=== PATIENT | male | born 1965 | race Caucasian/White ===

== ENCOUNTER 2017-06-19 17:56 | Inpatient (IN) ==
[2017-06-19] MEDS ORDERED: LACTATED RINGERS 1,000 ML IV STA (18:08)
[2017-06-19 18:25] LABS: Basophils % 0.2 % (0.0-0.8); Eosinophils % 0.1 % (0.00-10.9); Hematocrit 41.6 VOL% (42.0-52.0); Hemoglobin 14.5 GM/DL (14.0-18.0); Immature Granulocytes % 0.9 %; Immature Granulocytes Absolute 0.17 #; Lymphocytes # 1.5 10*3/uL (1.4-4.0); Lymphocytes % 7.6 % (21.2-54.2); Mean Corpuscular HGB Conc 34.9 GM/DL (32-36); Mean Corpuscular Hemoglobin 31 PG (27-34); Mean Corpuscular Volume 89.1 FL (87-102); Mean Platelet Volume 9.7 FL (9.6-12.0); Monocytes # 1.2 10*3/uL (0.11-0.8); Monocytes % 6.2 % (1.7-12.7); Neutrophils # 16.4 10*3/uL (1.4-7.4); Platelet Count 256 T/CUMM (130-400); Red Blood Count 4.67 MC/CUMM (3.8-5.5); Red Cell Distribution Width 12.2 % (9.3-17.3); White Blood Count 19.2 T/CUMM (4-12)
[2017-06-19 18:35] LABS: PT Patient Result 10.2 SECS; Partial Thromboplastin Time 25.1 SECS (0-40)
[2017-06-19] MEDS ORDERED: HYDROmorphone 2 MG/1 ML VIAL IV STA (18:42)
[2017-06-19] MEDS ORDERED: ONDANSETRON 4 MG/2 ML VIAL IV STA (18:42)
[2017-06-19 18:50] LABS: Lactic Acid 1.4 MMOL/L (0.4-2.0)
[2017-06-19 18:52] LABS: Alanine Aminotransferase 50 U/L (16-61); Albumin 4.3 G/DL (3.4-5.0); Alkaline Phosphatase 60 U/L (45-117); Amylase 60 U/L (25-115); Aspartate Amino Transferase 44 U/L (0-37); Blood Urea Nitrogen 26 MG/DL (7-18); Calcium 9.1 MG/DL (8.5-10.1); Glucose 143 MG/DL (74-106); Osmolality,Calculated 279.8 MOS/KG (273-304); Sodium 137 MMOL/L (136-145); Troponin I Only < 0.015 NG/ML (0.00-0.045)
[2017-06-19] MEDS ORDERED: HYDROmorphone 2 MG/1 ML VIAL ONE (18:56)
[2017-06-19] MEDS ORDERED: ONDANSETRON 4 MG/2 ML VIAL ONE (18:56)
[2017-06-19] MEDS ORDERED: KETOROLAC 30 MG/1 ML VIAL ONE (19:08)
[2017-06-19] MEDS ORDERED: KETOROLAC 30 MG/1 ML VIAL IV STA (19:10)
[2017-06-19] MEDS ORDERED: SODIUM CHLORIDE 0.9% 1,000 ML IV PRN (21:36)
[2017-06-19] MEDS ORDERED: NALOXONE 0.4 MG/ML VIAL IV PRN (21:36)
[2017-06-19] MEDS: ALUMINUM/MAGNES/SIMETH MAX STR 30 ML UDCUP PO PRN (22:24)
[2017-06-19] MEDS: GABAPENTIN 100 MG CAPSULE PO SCH (22:25)
[2017-06-19] MEDS: LACTATED RINGERS 1,000 ML IV SCH (22:25)
[2017-06-19] MEDS: KETOROLAC 30 MG/1 ML VIAL IV SCH (22:28)
[2017-06-19] MEDS: HYDROmorphone PCA 30 MG/30 ML SYRINGE IV SCH (23:21)
[2017-06-20] MEDS: KETOROLAC 30 MG/1 ML VIAL IV SCH ×4 (05:37→23:22)
[2017-06-20] MEDS: LACTATED RINGERS 1,000 ML IV SCH (06:32)
[2017-06-20 06:51] LABS: Basophils % 0.2 % (0.0-0.8); Eosinophils % 0.2 % (0.00-10.9); Hematocrit 34.5 VOL% (42.0-52.0); Hemoglobin 12.2 GM/DL (14.0-18.0); Immature Granulocytes % 0.6 %; Immature Granulocytes Absolute 0.06 #; Lymphocytes # 1.7 10*3/uL (1.4-4.0); Mean Corpuscular HGB Conc 35.4 GM/DL (32-36); Mean Corpuscular Hemoglobin 31 PG (27-34); Mean Corpuscular Volume 88.5 FL (87-102); Mean Platelet Volume 10.2 FL (9.6-12.0); Monocytes # 0.9 10*3/uL (0.11-0.8); Monocytes % 8.5 % (1.7-12.7); Neutrophils # 7.5 10*3/uL (1.4-7.4); Neutrophils % 73.5 % (38.7-73.9); Platelet Count 193 T/CUMM (130-400); Red Cell Distribution Width 12.4 % (9.3-17.3); White Blood Count 10.2 T/CUMM (4-12)
[2017-06-20 07:26] LABS: Albumin 3.4 G/DL (3.4-5.0); Bilirubin,Total 1.3 MG/DL (0.2-1.0); Calcium 8.6 MG/DL (8.5-10.1); Osmolality,Calculated 281.4 MOS/KG (273-304); Potassium 3.9 MMOL/L (3.5-5.1); Total Protein 6.4 G/DL (6.4-8.3)
[2017-06-20] MEDS: ENOXAPARIN 40 MG/0.4 ML SYRINGE SUBCUT SCH (09:01)
[2017-06-20] MEDS: PANTOPRAZOLE 40 MG TABLET PO SCH (09:01)
[2017-06-20] MEDS: GABAPENTIN 100 MG CAPSULE PO SCH ×3 (09:01→19:50)
[2017-06-20] MEDS: ALUMINUM/MAGNES/SIMETH MAX STR 30 ML UDCUP PO PRN ×2 (11:00→16:18)
[2017-06-20] MEDS ORDERED: ROPIVACAINE 0.5% 30 ML VIAL NERVEBLOCK ONE (12:00)
[2017-06-20] MEDS ORDERED: TRIAMCINOLONE ACETONIDE 40 MG/1 ML VIAL MISC INJ ONE (12:00)
[2017-06-20] MEDS: HYDROmorphone PCA 30 MG/30 ML SYRINGE IV SCH (23:10)
[2017-06-21] MEDS: KETOROLAC 30 MG/1 ML VIAL IV SCH ×3 (05:38→18:14)
[2017-06-21 05:42] LABS: Basophils % 0.2 % (0.0-0.8); Hematocrit 33.7 VOL% (42.0-52.0); Hemoglobin 11.8 GM/DL (14.0-18.0); Immature Granulocytes % 0.5 %; Immature Granulocytes Absolute 0.06 #; Lymphocytes # 1.1 10*3/uL (1.4-4.0); Lymphocytes % 9.6 % (21.2-54.2); Mean Corpuscular Hemoglobin 31 PG (27-34); Mean Corpuscular Volume 88.2 FL (87-102); Mean Platelet Volume 10.2 FL (9.6-12.0); Monocytes # 0.6 10*3/uL (0.11-0.8); Neutrophils # 10.1 10*3/uL (1.4-7.4); Neutrophils % 84.7 % (38.7-73.9); Platelet Count 177 T/CUMM (130-400); Red Blood Count 3.82 MC/CUMM (3.8-5.5); White Blood Count 11.9 T/CUMM (4-12)
[2017-06-21 06:00] LABS: Calcium 8.2 MG/DL (8.5-10.1); Magnesium 2.8 MG/DL (1.8-2.4); Osmolality,Calculated 278.5 MOS/KG (273-304); Potassium 4.3 MMOL/L (3.5-5.1)
[2017-06-21] MEDS: GABAPENTIN 100 MG CAPSULE PO SCH ×3 (08:28→19:50)
[2017-06-21] MEDS: ENOXAPARIN 40 MG/0.4 ML SYRINGE SUBCUT SCH (08:28)
[2017-06-21] MEDS: PANTOPRAZOLE 40 MG TABLET PO SCH (08:28)
[2017-06-21] MEDS: POLYETHYLENE GLYCOL POWDER 17 GM PACK PO SCH (10:22)
[2017-06-21] MEDS ORDERED: TRIAMCINOLONE ACETONIDE 40 MG/1 ML VIAL MISC INJ ONE (13:26)
[2017-06-21] MEDS ORDERED: ROPIVACAINE 0.5% 30 ML VIAL MISC INJ ONE (13:26)
[2017-06-21] MEDS: ALUMINUM/MAGNES/SIMETH MAX STR 30 ML UDCUP PO PRN (14:30)
[2017-06-21] MEDS: HYDROmorphone PCA 30 MG/30 ML SYRINGE IV SCH (21:47)
[2017-06-22] MEDS: KETOROLAC 30 MG/1 ML VIAL IV SCH ×3 (00:43→12:34)
[2017-06-22] MEDS: PANTOPRAZOLE 40 MG TABLET PO SCH (08:43)
[2017-06-22] MEDS: POLYETHYLENE GLYCOL POWDER 17 GM PACK PO SCH (08:43)
[2017-06-22] MEDS: GABAPENTIN 100 MG CAPSULE PO SCH ×2 (08:43→14:19)
[2017-06-22] MEDS: ENOXAPARIN 40 MG/0.4 ML SYRINGE SUBCUT SCH (08:43)
[2017-06-22] MEDS ORDERED: MORPHINE 2 MG/1 ML SYRINGE IV PRN (09:48)
[2017-06-22 11:40] VITALS: BP 148/79
== END 2017-06-22 16:25 | disposition home or self-care (01) | DRG 199 ==
LOC: EDUNIT# → EDBD → N.ED 17:56 → N.EDINP 19:22 → N.ICU 21:23 → N.3E 06-20 13:24
PROVIDERS: ADMIT Surgery; ATTEND Surgery